=== PATIENT | female | born 2000 | race Caucasian/White ===

== ENCOUNTER 2023-07-01 08:37 | Emergency (ER) | payer OTHER, SELFPAY ==
[2023-07-01 08:39] VITALS: BP 112/87; PULSE 95; RESP 16; TEMP 36.8; O2SAT 100; BMI 35.3
--- NOTE | 2023-07-01 08:45 | [facility].EDGENADL ---
Discharge Plan Disposition Patient Disposition: Home, Self-Care Condition: Good Prescriptions Prescriptions: New amoxicillin 500 mg capsule 500 mg PO Q12H 10 Days Qty: 20 0RF Referrals Follow up/Referrals: Jensen Langford [Primary Care Provider] - See instructions Activity Restrictions/Add. Instructions Additional Instructions/Restrictions: You were evaluated in the ER. You are positive for strep. Wash your hands to avoid spread. Take the prescribed antibiotics as directed. Take Tylenol or ibuprofen if needed for pain and fever. Drink plenty of water. Make an appointment with your primary care physician for reevaluation in the next 2 to 3 days. Return to the ER with new, worsening, or otherwise concerning symptoms. Clinical Impressions Clinical Impression: Acute streptococcal pharyngitis Discharge ED Provider: Lara Franco General Adult HPI General Chief complaint: Upper Respiratory Infection Stated complaint: sore throat,pressure in head Time Seen by Provider: 07/01/23 08:41 History of Present Illness HPI narrative: This 22-year-old female presents to the ER with concerns of sore throat, body aches. Patient states her symptoms started last night. She attempted to go to urgent care in [place] but they were closed. Patient would like to be tested for viruses and strep. Related Data Previous Rx's Medication Instructions Recorded amoxicillin 500 mg capsule 500 mg PO Q12H 10 days #20 caps 07/01/23 Allergies Allergy/AdvReac Type Severity Reaction Status Date / Time No Known Allergies Allergy Verified 07/01/23 08:56 [facility] Disclaimer: The information contained in this section may have been updated after the patient was seen, as this information can be updated by other users. Social History Smoking Status: Never smoker alcohol intake: never current occupational status: other Travel in the last 8 weeks: None ROS Obtained: Yes All systems reviewed & no additional complaints except as documented Constitutional Constitutional: Denies chills, Denies fever(s), Reports headache(s) and Denies weakness Eyes Eyes: Denies change in vision ENT Ears, Nose, Mouth, and Throat: Denies dizziness, Reports headache(s), Reports nasal congestion and Reports sore throat Cardiovascular Cardiovascular: Denies chest pain, Denies dyspnea and Denies leg edema Respiratory Respiratory: Denies cough and Denies dyspnea Gastrointestinal Gastrointestingal: Denies constipation, diarrhea, nausea or vomiting Genitourinary Female Genitourinary: Denies dysuria Musculoskeletal Musculoskeletal: Denies arthralgias, Denies myalgias, Denies numbness and Denies tingling Integumentary/Breasts Skin/Breast: Denies change in pigmentation Neurologic Neurologic: Denies dizziness, Reports headache(s), Denies numbness, Denies tingling and Denies weakness Physical Exam General General appearance: alert Head Head exam: atraumatic and normocephalic Eye Eye exam: Present PERRL and EOMI ENT ENT exam: Present mucous membranes moist and other (Posterior oropharyngeal erythema, mild exudate, all structures midline and symmetrical, range of motion of the neck full) Neck Neck exam: Present normal inspection, full ROM and lymphadenopathy (1 mild soft tender right cervical adenopathy) Chest Chest inspection: Present symmetric chest wall rise Respiratory Respiratory exam: Present normal lung sounds bilaterally; Absent respiratory distress, wheezes or stridor Cardiovascular Cardiovascular exam: Present regular rate and normal rhythm Abdominal Exam Abdominal exam: Present soft; Absent distention or tenderness Extremities Exam Extremities exam: Present full ROM Neurological Exam Neurological exam: Present alert and oriented X3; Absent motor sensory deficit Psychiatric Psychiatric exam: Present normal affect and normal mood Skin Skin exam: Present warm and dry Medical Decision Making Nam Inquiry Pt receiving controlled substance: No Vital Signs: 07/01/23 08:39 Temperature 98.2 F Temperature Source Oral Pulse Rate [Radial] 95 H Respiratory Rate 16 Blood Pressure [Right Arm] 112/87 Blood Pressure Mean [Right Arm] 95 Blood Pressure Source [Right Arm] Automatic Cuff Blood Pressure Position [Right Arm] Sitting 02 Sat by Pulse Oximetry 100 Oxygen Delivery Method Room Air Lab Data Lab Results 07/01/23 08:47: SARS-CoV-2 (PCR) Not detected, Influenza A Untype (PCR) Not detected, Influenza Type B (PCR) Not detected, Group A Strep Rapid Positive A Orders (Tests/Meds): ED MEDICATIONS Generic Name Dose Route Start Last Admin Trade Name Freq PRN Reason Stop Dose Admin Dexamethasone 10 mg 07/01/23 09:21 Dexamethasone 4mg Tablet PO 07/01/23 09:22 ONCE ONE Discontinued Medications Generic Name Dose Route Start Last Admin Trade Name Freq PRN Reason Stop Dose Admin Acetaminophen 1,000 mg 07/01/23 08:45 07/01/23 09:10 Acetaminophen 500mg Tab PO 07/01/23 08:46 1,000 mg ONCE ONE Administration ORDERS Category Date Time Status Rapid PCR Covid and Flu A/B Stat Lab 07/01/23 08:47 Received Strep Scrn Group A (Rapid) Stat Lab 07/01/23 08:47 Completed Medical Decision Narrative: In summary, this 22year old female presents to the emergency department today with sore throat. On initial evaluation patient is hemodynamically stable, afebrile, physical exam notable for posterior pharyngeal erythema, mild exudate, mild cervical adenopathy, remainder of exam benign. Differential diagnosis includes but is not limited to viral syndrome including COVID, influenza, also considered strep, considered [employer] or RPA but have no suspicion for these at this time given all structures are symmetric and midline, no fevers, no muffled voice, no pain with range of motion of the neck. Based on these concerns, I ordered viral testing, strep test. Labs notable for positive strep test, negative viral testing. Patient received oral dexamethasone. She had also received a dose of Tylenol in the ER. I offered her Bicillin versus amoxicillin, she would prefer to take oral medications. I prescribed amoxicillin. Patient was given instructions on symptomatic management, follow up instructions, and return precautions for the emergency department. Patient indicated understanding and was discharged in stable condition. Critical Care Critical Care Time Critical Care Time: No
[2023-07-01 08:50] LABS: Coronavirus 19, PCR Not Detected (NotDetected); Influenza A, PCR Not Detected (NotDetected); Influenza B, PCR Not Detected (NotDetected)
[2023-07-01 09:10] LABS: Strep Scrn Group A (Rapid) Positive (Negative)
[2023-07-01] MEDS: ACETAMINOPHEN 500MG TAB 1000 MG PO (09:10)
[2023-07-01 09:15] VITALS: BP 121/83; PULSE 87; RESP 18; O2SAT 98
[2023-07-01] MEDS: DEXAMETHASONE 4MG TABLET 10 MG PO (09:34)
[2023-07-01 09:39] VITALS: BP 112/87; PULSE 95; RESP 16; TEMP 36.8; O2SAT 100
== END 2023-07-01 09:39 | disposition home or self-care (01) ==
PROVIDERS: Emergency Provider Emergency Medicine; PCP Pediatrics
DX: J02.0 Streptococcal pharyngitis (principal); R51.9 Headache, unspecified; R09.81 Nasal congestion
CPT/HCPCS: 87430; 87636; 99283